=== PATIENT | female | born 1940 | race Caucasian/White ===

== ENCOUNTER 2020-05-09 14:34 | Inpatient (IN) | payer MEDICARE, OTHER ==
[~2020-05-09] VITALS: Ht 170 cm; Wt 73.3 kg
[2020-05-09] MEDS ORDERED: NS IV 1000 ML 1,000 ML ONE ×2 (14:46→15:52)
[2020-05-09] MEDS ORDERED: NS IV 1000 ML 1,000 ML IV STA (14:49)
[2020-05-09] MEDS ORDERED: HEParin 1000 UNIT/ML (10ML VIAL) FOR BOLUS IV STA (14:49)
[2020-05-09] MEDS ORDERED: ONDANSETRON 4 MG/2 ML (SDV) Z0FRAN IVP STA (14:58)
[2020-05-09] MEDS ORDERED: CLOPIDOGREL 300 MG (PLAVIX) TABLET PO STA (14:58)
[2020-05-09] MEDS ORDERED: HEParin DRIP 25000 UNIT/500ML 500 ML IV ONE (15:00)
[2020-05-09] MEDS ORDERED: ASPIRIN 81 MG CHEW (CHILDREN'S ASA) PO ONE (15:00)
--- NOTE | 2020-05-09 15:02 | ED Syncope ---
General Chief Complaint: Dizziness/Syncope Stated Complaint: FALL Nursing Triage Note: Patient reports she has not felt well for several days, states she has not been able to eat d/t nausea, denies any vomiting. Patient brought to the ED from [facility] for syncopal episode. B/P 80/40 per EMS, blood sugar 160 per EMS. Source of Information: Patient History of Present Illness Date Seen by Provider: May 09, 2020 Time Seen by Provider: 14:34 Initial Comments 80-year-old female presenting from [facility] after having a syncopal episode. She states that she has not been feeling well for the last 3 or 4 days. She was concerned that she may be had a urinary tract infection. However when she went to provide a urine specimen she had a syncopal episode. EMS was activated and brought her from the clinic to the emergency department. She is awake and alert but has hypertension with a blood pressure running in the 75-80 systolic range over 40s. Her blood sugar was 160 per EMS. She denies any history of heart problems or cardiac disease but did have heart problems for her dad. She states that she takes an aspirin 81 mg once a day. She otherwise denies any chronic medications. She denies any chest pain or shortness of breath. Allergies and Home Medications Allergies Coded Allergies: No Known Drug Allergies (Unverified , 05/09/20) Patient Home Medication List Home Medication List Reviewed: Yes Review of Systems Constitutional: diaphoresis; No fever; malaise (General malaise for the last few days), weakness (Generalized for the last few days), other (Syncopal episode in the clinic today) EENTM: no symptoms reported Respiratory: No cough, No dyspnea on exertion, No short of breath Cardiovascular: No chest pain, No palpitations; syncope (Passed out in the clinic today) Gastrointestinal: nausea; No vomiting Genitourinary: dysuria Musculoskeletal: no symptoms reported Skin: no symptoms reported Psychiatric/Neurological: No Symptoms Reported Past Vtqwkxw-Altzis-Hrzqmm Hx Past Med/Social Hx: Reviewed Nursing Past Med/Soc Hx Patient Social History Recent Infectious Disease Expo: No Past Medical History Surgeries: No Respiratory: No Cardiac: No Neurological: No Reproductive Disorders: No Genitourinary: No Physical Exam Vital Signs Vital Signs - First Documented 05/09/20 14:53 Temp 36.6 Pulse 64 Resp 18 B/P (MAP) 74/53 (60) Pulse Ox 97 O2 Delivery Room Air Capillary Refill : Less Than 3 Seconds Height, Weight, BMI Height: '" Weight: lbs. oz. kg; 22.00 BMI Method: General Appearance: Mild Distress, Thin, Other (clammy and pale) HEENT: PERRL/EOMI, Pharynx Normal Neck: Non Tender, Supple Cardiovascular: Regular Rate, Rhythm, Normal Peripheral Pulses Respiratory: Chest Non Tender, Lungs Clear, Normal Breath Sounds, No Accessory Muscle Use, No Respiratory Distress Gastrointestinal: Normal Bowel Sounds, No Pulsatile Mass, Soft Extremities: Normal Capillary Refill, No Pedal Edema Neurologic/Psychiatric: Alert, Oriented x3 Cranial Nerves: Normal Hearing, Normal Speech, PERRL Motor/Sensory: No Motor Deficit, No Sensory Deficit Skin: Cool, Damp, Pallor Focused Exam Lactate Level 05/09/20 14:45: Lactic Acid Level 3.35*H Lactic Acid Level Laboratory Tests Test 05/09/20 14:45 Lactic Acid Level 3.35 MMOL/L (0.50-2.00) *H Progress/Results/Core Measures Results/Orders Lab Results Laboratory Tests Test 05/09/20 14:45 Range/Units White Blood Count 17.3 H 4.3-11.0 10^3/uL Red Blood Count 4.13 L 4.35-5.85 10^6/uL Hemoglobin 13.0 11.5-16.0 G/DL Hematocrit 39 35-52 % Mean Corpuscular Volume 95 80-99 FL Mean Corpuscular Hemoglobin 31 25-34 PG Mean Corpuscular Hemoglobin Concent 33 32-36 G/DL Red Cell Distribution Width 13.0 10.0-14.5 % Platelet Count 264 130-400 10^3/uL Mean Platelet Volume 11.0 H 7.4-10.4 FL Immature Granulocyte % (Auto) 0 % Neutrophils (%) (Auto) 78 H 42-75 % Lymphocytes (%) (Auto) 10 L 12-44 % Monocytes (%) (Auto) 11 0-12 % Eosinophils (%) (Auto) 0 0-10 % Basophils (%) (Auto) 0 0-10 % Neutrophils # (Auto) 13.5 H 1.8-7.8 X 10^3 Lymphocytes # (Auto) 1.6 1.0-4.0 X 10^3 Monocytes # (Auto) 2.0 H 0.0-1.0 X 10^3 Eosinophils # (Auto) 0.1 0.0-0.3 10^3/uL Basophils # (Auto) 0.1 0.0-0.1 10^3/uL Immature Granulocyte # (Auto) 0.1 0.0-0.1 10^3/uL Neutrophils % (Manual) 68 % Lymphocytes % (Manual) 17 % Monocytes % (Manual) 11 % Eosinophils % (Manual) 0 % Basophils % (Manual) 0 % Metamyelocytes % 0 % Myelocytes % 2 % Band Neutrophils 2 % Prothrombin Time 13.9 12.2-14.7 SEC INR Comment 1.0 0.8-1.4 Activated Partial Thromboplast Time 28 24-35 SEC Sodium Level 135 135-145 MMOL/L Potassium Level 3.8 3.6-5.0 MMOL/L Chloride Level 98 98-107 MMOL/L Carbon Dioxide Level 20 L 21-32 MMOL/L Anion Gap 17 H 5-14 MMOL/L Blood Urea Nitrogen 20 H 7-18 MG/DL Creatinine 0.94 0.60-1.30 MG/DL Estimat Glomerular Filtration Rate 58 BUN/Creatinine Ratio 21 Glucose Level 154 H 70-105 MG/DL Lactic Acid Level 3.35 *H 0.50-2.00 MMOL/L Calcium Level 9.3 8.5-10.1 MG/DL Corrected Calcium 9.5 8.5-10.1 MG/DL Magnesium Level 1.8 1.6-2.4 MG/DL Total Bilirubin 0.8 0.1-1.0 MG/DL Aspartate Amino Transf (AST/SGOT) 44 H 5-34 U/L Alanine Aminotransferase (ALT/SGPT) 28 0-55 U/L Alkaline Phosphatase 95 40-136 U/L Troponin I 11.85 *H <0.30 NG/ML Pro-B-Type Natriuretic Peptide 6376.0 H <75.0 PG/ML Total Protein 7.3 6.4-8.2 GM/DL Albumin 3.8 3.2-4.5 GM/DL Lipase 10 8-78 U/L My Orders Orders - KACY PORTILLO MD Cbc With Automated Diff (05/09/20 14:47) Magnesium (05/09/20 14:47) Chest 1 View Ap/Pa Only (05/09/20 14:47) Ekg Tracing (05/09/20 14:47) Comprehensive Metabolic Panel (05/09/20 14:47) Protime With Inr (05/09/20 14:47) Partial Thromboplastin Time (05/09/20 14:47) O2 (05/09/20 14:47) Monitor-Rhythm Ecg Trace Only (05/09/20 14:47) Aspirin Chewable Tablet (Baby Aspirin Ch (05/09/20 15:00) Ed Iv/Invasive Line Start (05/09/20 14:47) Lipase (05/09/20 14:47) Troponin I Fs (05/09/20 14:47) Probnp Fs (05/09/20 14:47) Ua Culture If Indicated (05/09/20 14:49) Blood Culture (05/09/20 14:49) Lactic Acid Analyzer (05/09/20 14:49) Heparin Drip [id number] Unit/500ml (Heparin (05/09/20 15:00) Heparin (Bolus Per Protocol) (Heparin (B (05/09/20 14:49) Ns Iv 1000 Ml (Sodium Chloride 0.9%) (05/09/20 14:49) Ns Iv 1000 Ml (Sodium Chloride 0.9%) (05/09/20 14:46) Clopidogrel Tablet (Plavix Tablet) (05/09/20 14:58) Ondansetron Injection (Zofran Injectio (05/09/20 14:58) Manual Differential (05/09/20 14:45) Medications Given in ED Current Medications Medications Dose Ordered Sig/Nathalia Route Start Time Stop Time Status Last Admin Dose Admin Aspirin 324 mg ONCE ONCE PO 05/09/20 15:00 05/09/20 15:01 DC 05/09/20 15:10 324 MG Vital Signs/I&O 05/09/20 14:53 Temp 36.6 Pulse 64 Resp 18 B/P (MAP) 74/53 (60) Pulse Ox 97 O2 Delivery Room Air Blood Pressure Mean: 60 Progress Progress Note : Progress Note Patient noted to have ST elevation on the cardiac telemetry monitoring so with her syncopal episode EKG was ordered. This also showed ST elevation in the inferoposterior and lateral leads. Based on this aspirin and heparin were ordered. She was still hypotensive in the 70-80 systolic range but she was alert and talking. I paged and spoke with Dr. Simpson the on-call geological survey field assistant at 1452. He agreed with the aspirin and wanted a bolus of heparin but did not want the drip. He also requested 600 mg of Plavix. EMS was notified and activated for the emergent transfer. 9 I spoke with nursing retail warehouse supervisor as EMS arrived to take the patient. [address] Monroe for [facility] monitoring specialist provider so she was aware of the patient in case she was consulted or had to admit the patient. Initial ECG Impression Date: May 09, 2020 Initial ECG Impression Time: 14:41 Initial ECG Rate: 67 Initial ECG Rhythm: Normal Sinus Initial ECG Comparisson: No Previous ECG Available Comment Normal sinus rhythm with a heart rate of 67 bpm and a prolonged MO interval of 282 ms. Nonspecific intraventricular conduction delay. Inferoposterior infarct with ST elevation in leads II, III, aVF. QT interval 359 ms with a QTc interval 379 ms. No prior tracings available for comparison. Diagnostic Imaging Diagonstic Imaging: Xray Plain Films/CT/US/NM/MRI: chest Comments [facility] [place], [place] NAME: LALI HERNANDEZ [facility] REC#: [id number] PT STATUS: REG ER : 1940 PHYSICIAN: KACY PORTILLO MD ADMIT DATE: 05/09/20/ER FS Draft Date of Exam:05/09/20 CHEST 1 VIEW AP/PA ONLY INDICATION: Syncope. EXAMINATION: Portable chest at 2:54 PM. FINDINGS: The heart size and pulmonary vascularity are normal. The lungs are clear. There are no effusions or pneumothoraces. IMPRESSION: Negative chest. Dictated on workstation # [id number] Dict: 05/09/20 1509 Trans: 05/09/20 [facility]2 [id number] Interpreted by: RAVIN FRENCH MD Electronically signed by: Departure Communication (Admissions) Time/Spoke to Admitting Phy: 14:52 d/w Dr. Simpson and he requested pt come straight to the [facility]. Plavix 600 mg, Bolus of Heparin, Aspirin 324 mg and come immediately to [facility]. Notified Nursing retail warehouse supervisor and EMS to arrange transport. Impression Primary Impression: Acute ST elevation myocardial infarction (STEMI) Qualified Codes: I21.3 - ST elevation (STEMI) myocardial infarction of unspecified site Additional Impression: Syncope Qualified Codes: R55 - Syncope and collapse Disposition: 30 STILL A PATIENT Condition: Critical Admissions Decision to Admit Reason: Admit from ER (General) Decision to Admit/Date: May 09, 2020 Time/Decision to Admit Time: 14:52 KACY PORTILLO MD May 09, 2020 15:02
[2020-05-09 15:04] LABS: HEMATOCRIT 39 % (35-52); MEAN CORPUSCULAR HEMOGLOBIN 31 PG (25-34); MEAN CORPUSCULAR HGB CONC 33 G/DL (32-36); MEAN CORPUSCULAR VOLUME 95 FL (80-99); PLATELET COUNT 264 10^3/uL (130-400); WHITE BLOOD COUNT 17.3 10^3/uL (4.3-11.0)
[2020-05-09 15:05] LABS: BASOPHILS # (AUTO) 0.1 10^3/uL (0.0-0.1); BASOPHILS % (AUTO) 0 % (0-10); EOSINOPHILS # (AUTO) 0.1 10^3/uL (0.0-0.3); EOSINOPHILS % (AUTO) 0 % (0-10); LYMPHOCYTES # (AUTO) 1.6 X 10^3 (1.0-4.0); LYMPHOCYTES % (AUTO) 10 % (12-44); MONOCYTES % (AUTO) 11 % (0-12); NEUTROPHILS # (AUTO) 13.5 X 10^3 (1.8-7.8); NEUTROPHILS % (AUTO) 78 % (42-75)
--- NOTE | 2020-05-09 15:12 | Diagnostic Imaging Report ---
INDICATION: Syncope. EXAMINATION: Portable chest at 2:54 PM. FINDINGS: The heart size and pulmonary vascularity are normal. The lungs are clear. There are no effusions or pneumothoraces. IMPRESSION: Negative chest. Dictated by: Dictated on workstation # [id number]
[2020-05-09 15:13] LABS: PROTHROMBIN TIME PATIENT 13.9 SEC (12.2-14.7)
[2020-05-09 15:24] LABS: BILIRUBIN,TOTAL 0.8 MG/DL (0.1-1.0); CALCIUM 9.3 MG/DL (8.5-10.1); CREATININE SERUM 0.94 MG/DL (0.60-1.30); MAGNESIUM 1.8 MG/DL (1.6-2.4); POTASSIUM 3.8 MMOL/L (3.6-5.0)
[2020-05-09 15:25] LABS: ALBUMIN 3.8 GM/DL (3.2-4.5); TOTAL PROTEIN 7.3 GM/DL (6.4-8.2)
[2020-05-09 15:27] LABS: BAND NEUTROPHILS 2 %; BASOPHILS % (MANUAL) 0 %; EOSINOPHILS % (MANUAL) 0 %; LYMPHOCYTES % (MANUAL) 17 %; METAMYELOCYTES % 0 %; MONOCYTES % (MANUAL) 11 %; MYELOCYTES % 2 %; NEUTROPHILS % (MANUAL) 68 %
[2020-05-09] MEDS ORDERED: ATROPINE INJECTION 1 MG/10 ML SYR (ABBOTT) INJ ONE (15:46)
[2020-05-09] MEDS ORDERED: EPTIFIBATIDE BOLUS 20 ML IV ONE (15:56)
[2020-05-09] MEDS ORDERED: ATROPINE INJECTION 1 MG/10 ML SYR (ABBOTT) ONE ×2 (15:57→16:11)
[2020-05-09] MEDS ORDERED: niCARdipine 25 MG/10 ML (CARDENE) AMP IV ONE (16:06)
[2020-05-09] MEDS ORDERED: NS (IVPB) 250 ML ONE (16:07)
[2020-05-09] MEDS ORDERED: DOPamine DRIP 250 ML IV ONE (16:13)
[2020-05-09] MEDS ORDERED: MIDAZOLAM 5 MG/5 ML (VERSED) VIAL ONE (16:45)
[2020-05-09] MEDS ORDERED: fentaNYL INJ 100 MCG/2 ML AMP ONE (16:45)
--- NOTE | 2020-05-09 16:52 | Cardiology History & Physical ---
HPI-Cardiology Cardiology Consultation Date of Consultation 05/09/20 Date of Admission Time Seen by Provider: 15:45 Indication: chest pain HPI 80 years old lady with no significant past medical history, reported history of syncope about 3-4 days ago and came to the emergency room because she was not feeling very well. Did not have a arpan chest pain. Was noted to have ST elevation in the inferior leads with hyperglycemia, elevated lactic acid. Hypotensive with a blood pressure in the 70s. Patient was transferred for emergency cardiac catheterization and stent PMH-Cardiology Surgeries No Respiratory No Cardiovascular No Neurological No Reproductive System Hx Reproductive Disorders: No Genitourinary No Other PMHx No significant past medical history Social History Patient Social History Marrital Status: Employed/Student: retired Smoking: Current every day smoker Family Hx Other Noncontributory ROS-Cardiology Review of Systems General: No Chills, No Night Sweats; Fatigue, Malaise; No Appetite HEENT: No Head Aches, No Visual Changes, No Eye Pain, No Ear Pain, No Dysphasia, No Sinus Congestion, No Post Nasal Drip, No Sore Throat Pulmonary: Dyspnea; No Cough, No Pleuritic Chest Pain Cardiovascular: Chest Pain; No: Palpitations, Orthopnea, Paroxysmal Noc. Dyspnea, Edema, Lt Headedness Gastrointestinal: No: Nausea, Vomiting, Abdominal Pain, Diarrhea, Constipation, Melena, Hematochezia Genitourinary: No Dysuria, No Frequency, No Incontinence, No Hematuria, No Retention Musculoskeletal: No: neck pain, shoulder pain, arm pain, back pain, hand pain, leg pain, foot pain Neurological: No: Weakness, Numbness, Incoordination, Change in speech, Conf usion, Seizures Home Medications & Allergies Allergies: Coded Allergies: No Known Drug Allergies (Unverified , 05/09/20) Home Medication List Reviewed: Yes Exam-Cardiology Vital Signs Vital Signs Date Time Temp Pulse Resp B/P (MAP) Pulse Ox O2 Delivery O2 Flow Rate FiO2 05/09/20 14:53 36.6 64 18 74/53 (60) 97 Room Air Exam General Appearance: Alert, Oriented X3, Cooperative, No Acute Distress HEENT: Atraumatic, PERRLA Respiratory: Clear to Auscultation, Normal Air Movement Cardiovascular: Regular Rate, Normal S1, Normal S2, No Murmurs Abdominal: Normal Bowel Sounds, Soft, No Tenderness, No Hepatosplenomegaly, No Masses Extremities: No Clubbing, No Cyanosis, No Edema, Normal Pulses, No Tenderness/Swelling Skin: No Rashes, No Breakdown, No Significant Lesion Neuro: Normal Gait, Normal Speech, Strength at 5/5 X4 Ext, Normal Tone, Sensation Intact Psych/Mental Status: Mental Status NL, Mood NL Results Labs Labs Laboratory Tests 05/09/20 14:45: White Blood Count 17.3H, Red Blood Count 4.13L, Hemoglobin 13.0, Hematocrit 39, Mean Corpuscular Volume 95, Mean Corpuscular Hemoglobin 31, Mean Corpuscular Hemoglobin Concent 33, Red Cell Distribution Width 13.0, Platelet Count 264, Mean Platelet Volume 11.0H, Immature Granulocyte % (Auto) 0, Neutrophils (%) (Auto) 78H, Lymphocytes (%) (Auto) 10L, Monocytes (%) (Auto) 11, Eosinophils (%) (Auto) 0, Basophils (%) (Auto) 0, Neutrophils # (Auto) 13.5H, Lymphocytes # (Auto) 1.6, Monocytes # (Auto) 2.0H, Eosinophils # (Auto) 0.1, Basophils # (Auto) 0.1, Immature Granulocyte # (Auto) 0.1, Neutrophils % (Manual) 68, Lymphocytes % (Manual) 17, Monocytes % (Manual) 11, Eosinophils % (Manual) 0, Basophils % (Manual) 0, Metamyelocytes % 0, Myelocytes % 2, Band Neutrophils 2, Prothrombin Time 13.9, INR Comment 1.0, Activated Partial Thromboplast Time 28, Sodium Level 135, Potassium Level 3.8, Chloride Level 98, Carbon Dioxide Level 20L, Anion Gap 17H, Blood Urea Nitrogen 20H, Creatinine 0.94, Estimat Glomerular Filtration Rate 58, BUN/Creatinine Ratio 21, Glucose Level 154H, Lactic Acid Level 3.35*H, Calcium Level 9.3, Corrected Calcium 9.5, Magnesium Level 1.8, Total Bilirubin 0.8, Aspartate Amino Transf (AST/SGOT) 44H, Alanine Aminotransfe rase (ALT/SGPT) 28, Alkaline Phosphatase 95, Troponin I 11.85*H, Pro-B-Type Natriuretic Peptide 6376.0H, Total Protein 7.3, Albumin 3.8, Lipase 10 A/P-Cardiology Admission Diagnosis Acute ST elevation myocardial infarction Septic shock Congestive heart failure, acute left ventricular systolic dysfunction Hypotension Lactic acidosis Admission Status: Inpatient Order (span 2 midnights) Reason for Inpatient Admission: Acute myocardial infarction Assessment/Plan Acute ST elevation occurred infarction in the inferior wall, status post emergency cardiac catheterization and stenting of the right coronary artery with multiple stents, severe coronary artery disease. Started on aspirin and Plavix. Continue to monitor Cardiogenic shock, hypotensive shock, had transient bradycardia started on dopamine drip, received atropine. Better at this time. Continue to monitor closely Congestive heart failure, acute left ventricular systolic dysfunction, severe hypokinesia diffusely, akinesia of the inferior wall, started on Coreg and Entresto, adding Lasix, place a Ross catheter Hypotensive shock, better at this time, monitor blood pressure closely Lactic acidosis, probably secondary to prolonged hypotension prior to arrival to the hospital Leukocytosis, probably reactive. Syncope, reported syncope 2-3 days ago, probably related to arrhythmia and hypotension. SLIM FOURNIER MD May 09, 2020 4:52 pm
--- NOTE | 2020-05-09 16:52 | Cardiac Procedure Note-CS/ASA ---
Pre-Procedure Note Pre-Op Procedure Note H&P Reviewed The H&P was reviewed, patient examined and no changes noted. Date H&P Reviewed: May 09, 2020 Time H&P Reviewed: 16:52 Conscious Sedation Pre-Proced Time 16:52 ASA Score 3 For ASA 3 and 4: Consider anesthesia and medical clearance. Also, for patients with a history of failed moderate sedation consider anesthesia. Airway Lungs Heart ASA score ASA 1: a normal healthy patient ASA 2: a patient with a mild systemic disease (mid diabetes, controlled hypertension, obesity x ASA 3: a patient with a severe systemic disease that limits activity (angina, COPD, prior Myocardial infarction) ASA 4: a patient with an incapacitating disease that is a constant threat to life (CHF, renal failure) ASA 5: a moribund patient not expected to survive 24 hrs. (ruptured aneurysm) ASA 6: a declared brain- patient whose organs are being harvested. For emergent operations, add the letter E after the classification Mallampati Classification Grade 3 Sedation Plan Analgesia, Amnesia, Plan communicated to team members, Discussed options with patient/fam, Discussed risks with patient/fam The patient is an appropriate candidate to undergo the planned procedure, sedation, and anesthesia. The patient immediately re-assessed prior to indication. SLIM FOURNIER MD May 09, 2020 4:52 pm
[2020-05-09] MEDS ORDERED: HEParin (CATH LAB) 2,000 ML IV ONE (16:58)
[2020-05-09] MEDS ORDERED: HEParin 1000 UNIT/ML (10ML VIAL) FOR BOLUS ONE (16:58)
[2020-05-09] MEDS ORDERED: NITRO DRIP 25000 MCG/D5W 250 ML IV ONE (16:58)
[2020-05-09] MEDS ORDERED: PATIENT MAY USE OWN MEDS, ALL PO SCH (17:00)
[2020-05-09] MEDS ORDERED: ENOXAPARIN 40 MG/0.4 ML (LOVENOX) SYR SQ SCH (17:00)
--- NOTE | 2020-05-09 17:06 | Cardiac Cath Report ---
Cardiac Cath Report Physician (s)/Tool Crib Clerk (s) Physician SLIM FOURNIER MD Pre-Procedure Diagnosis Pre-Procedure Diagnosis: acute ST elevation myocardial infarction Post-Procedure Note Procedure Start Date: May 09, 2020 Name of Procedure: Left heart catheterization Left ventriculogram Stent to the right coronary artery Findings/Procedure Note PROCEDURE NOTE: 80-year-old lady with no known past medical history admitted with acute ST elevation of cardiac infarction of the inferior wall, transferred from [facility] for emergency cardiac catheterization. On arrival patient was hypotensive. Heart rate was stable. She was lethargic. After explaining the procedure to the patient, all pros and cons were explained, all questions were answered. The patient signed the consent and then she was placed on the cardiac catheterization laboratory. Groin was prepped SL fashion local anesthesia was used. Sheath placed in the right femoral artery. Bandar left was advanced and left coronary system and angiogram was done then I used Bandar right guide and advanced to the right coronary artery which was occluded. Patient received 3000 units of heparin in [place] emergency room I gave additional 3000 units, BMW wire crossed with difficulty to the distal right coronary artery and I predilated with 2.5 x 20 balloon reestablished flow, door to balloon time was 20 minutes. After multiple inflation I proceeded with deployment of Jackie 2.5 x 33 stent deployed under highv with optimal results. I was trying to deliver stent distally without success I delivered a stent to the proximal portion use Jackie 2.5 x 18 mm and expanded to 2.75 mm did multiple inflation with 2.75 stent. Another attempt to cross the stent to the distal was unsuccessful. During the procedure patient became bradycardic and hypotensive, atropine was given then started on dopamine drip. Patient responded well. At the end of the procedure the sheath was removed. Closure device was deployed FINDINGS: Hemodynamics LV 127/30, end-diastolic pressure of 30 Aorta 125/67 mean of 78 ANATOMY: Left Main is free of obstructive disease Left Anterior Descending has moderate lesion in the midportion, distally there is an area of severe stenosis, the artery is fairly small Left Circumflex has moderate severe lesion proximally Right Coronory Artery is totally occluded, heavily calcified artery, complex intervention with multiple stent deployment using proximally Jackie 2.5 x 18 mm followed by 2.5 x 33 mm they both expanded to 2.8 mm with excellent results. Distally there is still residual stenosis that was not treated due to the reestablishment of flow and an inability to advance stent, patient was becoming very restless LV Gram was done showing dilated left ventricle, severe diffuse left ventricular hypokinesia, akinesia of the inferior wall, ejection fraction 20 percent CONCLUSION: 1. Acute ST elevation myocardial infarctions successful emergency angioplasty and stenting with door to balloon time 20 minutes 2. Total occlusion of the right coronary artery complex intervention with deployment of 2 stents Jackie proximally 2.5 x 18 mm followed by 2.5 x 33 mm expanded to 2.8 mm with excellent results, distal to the stent the artery is fairly small but still have a lesion that required evaluation at a later point 3. Moderate severe stenosis at the proximal circumflex artery, moderate lesion in the mid LAD and moderate severe lesion at the distal LAD 4. Dilated left ventricle with severe diffuse left ventricular hypokinesia, akinesia of the inferior wall, EF 20 percent DISCUSSION AND RECOMMENDATION: Maximizing medical therapy, patient might require evaluation for CABG or high risk staged intervention, will need to have an ICD in the Life[employer]est in addition to maximizing medical therapy. Anesthesia Type: Conscious Sedation Estimated blood loss (mL): 35 ml Contrast Amount: 107 ml Total Radiation Dose: 1217 mGy Post-Procedure Diagnosis Post-operative diagnosis: Acute ST elevation myocardial infarctions Congestive heart failure Acute hypotensive shock Hyperlipidemia SLIM FOURNIER MD May 09, 2020 17:06
[2020-05-09] MEDS: NS IV 1000 ML 1,000 ML IV SCH (17:12)
[2020-05-09] MEDS ORDERED: morphine INJ 4 MG/ML 1 ML (VIAL/SYRINGE) ONE (17:32)
[2020-05-09] MEDS: morphine INJ 4 MG/ML 1 ML (VIAL/SYRINGE) IVP PRN (17:38)
[2020-05-09 18:24] LABS: ALBUMIN 3.3 GM/DL (3.2-4.5); CHLORIDE 108 MMOL/L (98-107); POTASSIUM 3.9 MMOL/L (3.6-5.0); SODIUM 135 MMOL/L (135-145)
[2020-05-09 18:25] LABS: CALCIUM 7.8 MG/DL (8.5-10.1)
[2020-05-09 18:27] LABS: GLUCOSE 123 MG/DL (70-105)
[2020-05-09 18:28] LABS: CARBON DIOXIDE 15 MMOL/L (21-32)
[2020-05-09 18:29] LABS: BILIRUBIN,TOTAL 1.4 MG/DL (0.1-1.0)
[2020-05-09 18:30] LABS: ALKALINE PHOSPHATASE 101 U/L (40-136); CREATININE SERUM 0.84 MG/DL (0.60-1.30); GFR ESTIMATED > 60; PHOSPHORUS 4.1 MG/DL (2.3-4.7)
[2020-05-09 18:31] LABS: BUN/CREATININE RATIO 21
[2020-05-09 18:33] LABS: BILIRUBIN,URINE NEGATIVE (NEGATIVE); CLARITY,URINE CLEAR; COLOR,URINE YELLOW; GLUCOSE, URINE (UA) TRACE (NEGATIVE); KETONES,URINE NEGATIVE (NEGATIVE); LEUKOCYTE ESTERASE ,URINE NEGATIVE (NEGATIVE); NITRITE,URINE NEGATIVE (NEGATIVE); PROTEIN,URINE 3+ (NEGATIVE)
[2020-05-09 18:33] LABS: ALANINE AMINOTRANSFERASE 57 U/L (0-55); MAGNESIUM 1.7 MG/DL (1.6-2.4)
[2020-05-09 18:36] LABS: BASOPHILS % (AUTO) 0 % (0-10); EOSINOPHILS % (AUTO) 0 % (0-10); HEMATOCRIT 36 % (35-52); HEMOGLOBIN 11.3 g/dL (11.5-16.0); LYMPHOCYTES # (AUTO) 0.5 10^3/uL (1.0-4.0); LYMPHOCYTES % (AUTO) 2 % (12-44); MEAN CORPUSCULAR HEMOGLOBIN 32 pg (25-34); MEAN CORPUSCULAR HGB CONC 32 g/dL (32-36); MEAN CORPUSCULAR VOLUME 102 fL (80-99); MEAN PLATELET VOLUME 11.5 fL (9.0-12.2); MONOCYTES # (AUTO) 1.3 10^3/uL (0.0-1.0); MONOCYTES % (AUTO) 7 % (0-12); NEUTROPHILS # (AUTO) 17.4 10^3/uL (1.8-7.8); NEUTROPHILS % (AUTO) 89 % (42-75); PLATELET COUNT 209 10^3/uL (130-400); WHITE BLOOD COUNT 19.5 10^3/uL (4.3-11.0)
[2020-05-09 18:53] LABS: AMORPHOUS SEDIMENT,UR LARGE AMOR PHOSPHATE /LPF; BACTERIA,URINE TRACE /HPF
[2020-05-09] MEDS ORDERED: PIPERACILLIN/TAZO 4.5 GM/NS 100 ML IV NR ×2 (19:00)
[2020-05-09 19:57] LABS: ABG BASE EXCESS -7.9 MMOL/L (-2.5-2.5); ABG OXYGEN SATURATION 99 % (94-100); ABG PCO2 34 MMHG (35-45); ABG PO2 118 MMHG (79-93); ABG TCO2 18.1 MMOL/L (21.0-31.0)
[2020-05-09 20:00] LABS: ABG PH 7.32 (7.37-7.43); ALLENS TEST YES-POS; INSPIRED O2 6 L; PATIENT TEMP 36.8; VENTILATOR NO
[2020-05-09] MEDS: SACUBITRIL/VALSARTAN 24/26 MG (ENTRESTO) TABLET PO SCH (20:27)
[2020-05-09] MEDS: CARVEDILOL 3.125 MG (COREG) TABLET PO SCH (20:27)
[2020-05-09] MEDS: ENOXAPARIN 40 MG/0.4 ML (LOVENOX) SYR SQ SCH (20:27)
[2020-05-09] MEDS ORDERED: SODIUM BICARBONATE 8.4% VIAL 100 MEQ in 1/2 NS IV SOLUTION 1,000 ML IV SCH (20:30)
[2020-05-09] MEDS ORDERED: NS IV 500 ML 500 ML ONE (22:45)
[2020-05-09] MEDS ORDERED: NS IV 500 ML 500 ML IV STA (22:54)
[2020-05-09] MEDS: NS IV 500 ML 500 ML IV SCH (22:58)
[2020-05-10] MEDS ORDERED: DOPamine DRIP 250 ML IV ONE (00:06)
[2020-05-10] MEDS: DOPamine DRIP 250 ML IV SCH ×2 (00:20→13:22)
[2020-05-10] MEDS: NS IV 1000 ML 1,000 ML IV SCH (00:33)
[2020-05-10] MEDS ORDERED: ONDANSETRON 4 MG/2 ML (SDV) Z0FRAN ONE (00:44)
[2020-05-10] MEDS ORDERED: ONDANSETRON 4 MG/5 ML ORAL SOLN (ZOFRAN) 5 ML PO PRN (01:00)
--- NOTE | 2020-05-10 01:42 | CONSULTATION REPORT ---
DATE OF SERVICE: 05/10/2020 ADMITTING PHYSICIAN: Dr. Simpson. ATTENDING PRIMARY CARE PHYSICIAN: Dr. Campos. HISTORY OF PRESENT ILLNESS: The patient is a 80-year-old female, who had a syncopal episode 3 to 4 days ago and then came to the Emergency Department and stated that she was very fatigued and not feeling well. She did not report any chest pain or any shortness of breath. She was noted to have ST elevation in the inferior leads as well as hyperglycemia and she was also found to be hypotensive with blood pressure in the 70s. She was transferred to [facility] where she was found to have ST elevation myocardial infarction, underwent cardiac catheterization as well as two stents placed today. In the ICU, she became hypotensive with a systolic blood pressure in the 70s requiring vasopressors. She is awake and alert and does answer all questions appropriately. Her only complaint at this time is fatigue. PAST MEDICAL HISTORY: Hypertension, hypercholesterolemia. PAST SURGICAL HISTORY: None. ALLERGIES: No known drug allergies. MEDICATIONS: Atorvastatin 80 mg daily, sacubitril/valsartan 24/26 mg daily, carvedilol 3.125 mg daily. SOCIAL HISTORY: Positive smoke 40 pack years. Negative alcohol. FAMILY HISTORY: Father, coronary artery disease. VITAL SIGNS: Temperature 36.6, blood pressure 77/42, pulse 62, respirations 22, pulse ox 98% on 3 liters nasal cannula. REVIEW OF SYSTEMS: Well-nourished female currently in no acute distress. She is not experiencing any shortness of breath or difficulty breathing. No chest pain, palpitations, diaphoresis. No nausea, vomiting, no diarrhea or constipation. No fever, chills, no recent inadvertent weight loss. All other review of systems negative. PHYSICAL EXAMINATION: CHEST: A few scattered wheezes bilaterally. HEART: Regular, no murmurs. EXTREMITIES: No lower extremity edema, negative Homans sign. HEENT: No scleral icterus. NECK: No cervical lymphadenopathy. ABDOMEN: Soft, nontender, nondistended. SKIN: Warm, dry. ASSESSMENT AND PLAN: A 80-year-old female with ST segment elevation myocardial infarction, requiring cardiac catheterization and stent placement x2. She is hypotensive and will require vasopressors and will require a central venous catheter for vasopressors as well as IV fluids and other IV medication therapy. Job ID: [id number] DocumentID: [id number] Dictated Date: 05/10/2020 01:20:02 Program Management Analyst Date: 05/10/2020 01:41:52 Dictated By: EDD DOWNS MD
--- NOTE | 2020-05-10 02:01 | OPERATIVE REPORT ---
DATE OF SERVICE: 05/10/2020 ADMITTING PHYSICIAN: Dr. Simpson. ATTENDING PRIMARY CARE PHYSICIAN: Dr. Campos. PREOPERATIVE DIAGNOSIS: ST segment elevation myocardial infarction with hypotension. POSTOPERATIVE DIAGNOSIS: ST segment elevation myocardial infarction with hypotension. PROCEDURE: Placement of left subclavian central venous catheter. SURGEON: Edd Downs MD. ANESTHESIA: Local. ESTIMATED BLOOD LOSS: Minimal. DISPOSITION: The patient tolerated the procedure well. INDICATIONS: The patient is a 80-year-old female who has had a several day history of fatigue and just not feeling well. She presented to [facility] where she was found to have ST segment elevation in posterior lead and was transferred to [facility]. She was seen by cardiology and underwent cardiac catheterization and found to have a significant arteriosclerotic disease and underwent angioplasty and stent placement x2. In the ICU, she did develop hypotension with a systolic blood pressure in the 70s. She will require a central venous catheter for vasopressors as well as other IV medication therapy. DESCRIPTION OF PROCEDURE: The left chest and neck were prepped and draped in standard surgical fashion. A 1% lidocaine was used to anesthetize the left subclavian region. The left subclavian vein was then cannulated with drawing of venous blood and the guidewire was then inserted without any resistance. The cannulating needle removed, and a skin incision made using 11 blade. A tract was then created using a venous dilator and a triple lumen central venous catheter was placed over the guidewire using the Seldinger technique. All three ports beau venous blood and saline pushed in without any resistance. Catheter was then sutured to the skin using 3-0 silk interrupted sutures. Catheter was then cleaned and covered with Op-Site. The patient tolerated the procedure well. We will get a post-procedure chest x-ray. Job ID: [id number] DocumentID: [id number] Dictated Date: 05/10/2020 01:23:08 Slider Assembler Date: 05/10/2020 02:01:12 Dictated By: EDD DOWNS MD
[2020-05-10] MEDS: PIPERACILLIN/TAZOBACTAM (BULK) 4.5 GM in NS (IVPB) 100 ML IV SCH ×3 (02:30→16:38)
[2020-05-10] MEDS ORDERED: METOCLOPRAMIDE INJ 10 MG/2 ML (REGLAN) IVP ONE (02:30)
[2020-05-10 03:51] LABS: HEMOGLOBIN 10.1 g/dL (11.5-16.0); MEAN PLATELET VOLUME 11.3 fL (9.0-12.2); WHITE BLOOD COUNT 11.1 10^3/uL (4.3-11.0)
[2020-05-10 04:01] LABS: ABG BASE EXCESS -6.6 MMOL/L (-2.5-2.5); ABG OXYGEN SATURATION 95 % (94-100); ABG PCO2 34 MMHG (35-45); ABG PH 7.35 (7.37-7.43); ABG PO2 76 MMHG (79-93); ABG TCO2 19.2 MMOL/L (21.0-31.0)
[2020-05-10 04:02] LABS: ALLENS TEST YES-POS; INSPIRED O2 5 L; PATIENT TEMP 36.2; VENTILATOR NO
[2020-05-10 04:03] LABS: CALCIUM 7.8 MG/DL (8.5-10.1)
[2020-05-10 04:07] LABS: CREATININE SERUM 0.96 MG/DL (0.60-1.30)
[2020-05-10 05:09] LABS: PHOSPHORUS 4.8 MG/DL (2.3-4.7)
[2020-05-10 05:11] LABS: MAGNESIUM 1.7 MG/DL (1.6-2.4)
--- NOTE | 2020-05-10 05:43 | Pulmonary Consultation ---
History of Present Illness History of Present Illness Date Seen by Provider: May 10, 2020 Time Seen by Provider: 05:38 Date of Admission Reason for Visit: chest pain Allergies and Home Medications Allergies Coded Allergies: No Known Drug Allergies (Unverified , 05/09/20) Past [id number] Hx Past Med/Social Hx: Reviewed Nursing Past Med/Soc Hx Patient Social History Alcohol Use: Denies Use Smoking Status: Never a Smoker 2nd Hand Smoke Exposure: No Recent Infectious Disease Expo: No Recent Hopitalizations: No Seasonal Allergies Seasonal Allergies: No Past Medical History Surgeries: No Respiratory: No Cardiac: No Hypertension Neurological: No Reproductive Disorders: No Genitourinary: No Gastrointestinal: No Musculoskeletal: No Endocrine: No HEENT: No Cancer: No Psychosocial: No Integumentary: No Review of Systems Time Seen by Provider: 05:42 Sepsis Event Evaluation Height, Weight, BMI Height: '" Weight: lbs. oz. kg; 22.00 BMI Method: Exam Exam Vital Signs Date Time Temp Pulse Resp B/P (MAP) Pulse Ox O2 Delivery O2 Flow Rate FiO2 05/10/20 04:50 93 OxyMask 5.00 05/10/20 03:00 85 16 101/56 (71) 91 Nasal Cannula 3.00 05/10/20 02:00 95 17 138/67 (90) 92 Nasal Cannula 3.00 05/10/20 01:00 60 05/10/20 01:00 63 22 100/51 (67) 92 Nasal Cannula 3.00 05/10/20 00:30 36.2 Nasal Cannula 3.00 05/10/20 00:20 62 77/42 05/10/20 00:00 67 18 81/46 (58) 98 Nasal Cannula 3.00 05/10/20 00:00 90 Nasal Cannula 3.00 05/09/20 23:00 64 30 94/60 (71) 98 Nasal Cannula 3.00 05/09/20 22:00 65 22 86/48 (61) Nasal Cannula 3.00 05/09/20 21:00 68 24 112/72 (85) 100 Nasal Cannula 3.00 05/09/20 20:20 90 Nasal Cannula 3.00 05/09/20 20:20 Nasal Cannula 3.00 05/09/20 20:00 70 21 119/68 (85) 97 Nasal Cannula 5.00 05/09/20 19:25 35.8 Nasal Cannula 5.00 05/09/20 19:00 72 17 103/68 (80) 100 Nasal Cannula 5.00 05/09/20 19:00 72 05/09/20 18:56 90 Nasal Cannula 7.00 05/09/20 18:20 89 05/09/20 18:00 76 22 95/58 (70) 100 Nasal Cannula 5.00 05/09/20 17:45 80 22 107/61 (76) 99 Nasal Cannula 5.00 05/09/20 17:30 86 22 93/72 (79) 58 Nasal Cannula 5.00 05/09/20 17:15 85 13 133/82 (99) 74 Nasal Cannula 5.00 05/09/20 17:00 69 8 88/59 (69) Nasal Cannula 5.00 05/09/20 15:12 36.6 66 22 74/53 97 Room Air 05/09/20 14:53 36.6 64 18 74/53 (60) 97 Room Air I & O 05/10/20 07:00 Intake Total 1420 ml Output Total 450 ml Balance 970 ml Height & Weight Height: '" Weight: lbs. oz. kg; 22.00 BMI Method: General Appearance: Mild Distress, Thin, Other (clammy and pale) HEENT: PERRL/EOMI, Pharynx Normal Neck: Non Tender, Supple Respiratory: Chest Non Tender, Lungs Clear, Normal Breath Sounds, No Accessory Muscle Use, No Respiratory Distress Cardiovascular: Regular Rate, Rhythm, Normal Peripheral Pulses Capillary Refill: Less Than 3 Seconds Extremity: Normal Capillary Refill, No Pedal Edema Neurologic/Psychiatric: Alert, Oriented x3 Skin: Cool, Damp, Pallor Results Lab Laboratory Tests 05/09/20 14:45 05/09/20 18:00 05/10/20 03:43 Assessment/Plan Assessment/Plan S/p Acute STEMI and cardiac cath with 2 stents placed total occlusion of RCA and moderate to severe stenosis of proximal circumflex artery and LAD stenosis Cardiogenic shock EF is 20% and bradycardia -Pt is on Dopamine gtt now r/o sepsis -Continue Zosyn -Cultures pending Metabolic lactic acidosis -improving -Change Bicarb gtt back to LR DEQUAN TAO DO May 10, 2020 05:43
--- NOTE | 2020-05-10 05:57 | Diagnostic Imaging Report ---
INDICATION: Chest pain Portable chest 1:09 AM Left subclavian central line tip projects over the SVC. Heart size and pulmonary vascularity are both mildly increased. Lungs are clear. There are no effusions or pneumothoraces. IMPRESSION: Mild pulmonary venous congestion Dictated by: Dictated on workstation # [id number]
[2020-05-10] MEDS: LACTATED RINGERS 1,000 ML IV SCH ×2 (05:59→16:38)
[2020-05-10] MEDS: SACUBITRIL/VALSARTAN 24/26 MG (ENTRESTO) TABLET PO SCH ×2 (07:39→21:55)
[2020-05-10] MEDS: CARVEDILOL 3.125 MG (COREG) TABLET PO SCH ×2 (07:39→21:55)
[2020-05-10] MEDS: PANTOPRAZOLE 40 MG (PROTONIX) TAB PO SCH (08:34)
[2020-05-10] MEDS: ASPIRIN E.C. 81 MG (ECOTRIN) TAB PO SCH (08:34)
[2020-05-10] MEDS: CLOPIDOGREL 75 MG (PLAVIX) TABLET PO SCH (08:34)
--- NOTE | 2020-05-10 08:56 | Cardiology Progress Note ---
Subjective Date Seen by Provider: May 10, 2020 Time Seen by Provider: 08:55 Subjective/Events-last exam patient is laying down in bed, feeling better, groin is healing slowly, some bruising on the groin Review of Systems General: No Chills, No Night Sweats; Fatigue, Malaise; No Appetite, No Other HEENT: No Head Aches, No Visual Changes, No Eye Pain, No Ear Pain, No D ysphasia, No Sinus Congestion, No Post Nasal Drip, No Sore Throat, No Other Pulmonary: Dyspnea; No Cough, No Pleuritic Chest Pain, No Other Cardiovascular: No: Chest Pain, Palpitations, Orthopnea, Paroxysmal Noc. Dyspnea, Edema, Lt Headedness, Other Focused Exam Lactate Level 05/09/20 14:45: Lactic Acid Level 3.35*H 05/09/20 18:00: Lactic Acid Level 2.68*H 05/09/20 20:10: Lactic Acid Level 1.80 Objective-Cardiology Exam Last Set of Vital Signs Vital Signs 05/10/20 05/10/20 05/10/20 05/10/20 05/10/20 03:00 05:00 06:00 07:45 08:36 Temp 36.6 Pulse 86 Resp 16 B/P (MAP) 115/80 (92) Pulse Ox 94 O2 Delivery High Flow N/C O2 Flow Rate 8.00 Capillary Refill : Less Than 3 Seconds I&O Intake and Output 05/10/20 00:00 Intake Total 920 ml Output Total 200 ml Balance 720 ml Intake Oral 400 ml IV Total 520 ml Output Urine Total 200 ml General: Alert, Oriented X3, Cooperative, No Acute Distress HEENT: Atraumatic, PERRLA Lungs: Clear to Auscultation, Normal Air Movement Heart: Regular Rate, Normal S1, Normal S2, Gallops, Other (systolic murmur) Abdomen: Normal Bowel Sounds, Soft, No Tenderness, No Hepatosplenomegaly, No Masses Extremities: No Clubbing, No Cyanosis, No Edema, Normal Pulses, No Tenderness/S welling Skin: No Rashes, No Breakdown, No Significant Lesion Neuro: Normal Gait, Normal Speech, Strength at 5/5 X4 Ext, Normal Tone, Sensation Intact Psych/Mental Status: Mental Status NL, Mood NL Results Lab Laboratory Tests 05/09/20 14:45 05/09/20 18:00 05/10/20 03:43 A/P-Cardiology Admission Diagnosis Acute ST elevation myocardial infarction Septic shock Congestive heart failure, acute left ventricular systolic dysfunction Hypotension Lactic acidosis Assessment/Plan Acute ST elevation occurred infarction in the inferior wall, status post emergency cardiac catheterization and stenting of the right coronary artery with multiple stents, despite coronary disease, small arteries, started on aspirin and Plavix. Continue to monitor Cardiogenic shock, hypotensive shock, had transient bradycardia started on dopamine drip, received atropine. Better at this time. Continue to monitor closely Congestive heart failure, acute left ventricular systolic dysfunction, severe hypokinesia diffusely, akinesia of the inferior wall, started on Coreg and Entresto, currently on hold due to hypotension, maintained on dopamine drip. We will continue titrating Hypotensive shock, requiring pressors. We'll continue titrating and monitor closely I will arrange for LifeVest evaluation Lactic acidosis, probably secondary to prolonged hypotension prior to arrival to the hospital Leukocytosis, probably reactive. Syncope, reported syncope 2-3 days ago, probably related to arrhythmia and hypotension. SLIM FOURNIER MD May 10, 2020 08:56
[2020-05-10] MEDS ORDERED: ATROPINE INJ 0.4 MG/ML SDV IV ONE (09:45)
[2020-05-10] MEDS ORDERED: ATROPINE INJ 0.4 MG/ML SDV ONE (09:52)
[2020-05-10] MEDS ORDERED: ATROPINE INJECTION 1 MG/10 ML SYR (ABBOTT) ONE (09:53)
[2020-05-10] MEDS ORDERED: NAPR220C11 PO (10:19)
[2020-05-10] MEDS ORDERED: ASPI-1238 PO (10:19)
[2020-05-10] MEDS: NS IV 500 ML 500 ML IV SCH (16:05)
[2020-05-10] MEDS: ENOXAPARIN 40 MG/0.4 ML (LOVENOX) SYR SQ SCH (21:12)
[2020-05-11] MEDS: DOPamine DRIP 250 ML IV SCH ×3 (01:35→22:28)
[2020-05-11] MEDS: LACTATED RINGERS 1,000 ML IV SCH ×2 (01:36→11:56)
[2020-05-11] MEDS: PIPERACILLIN/TAZOBACTAM (BULK) 4.5 GM in NS (IVPB) 100 ML IV SCH ×3 (01:37→18:21)
[2020-05-11] MEDS: PHENYLEPHRINE INJECTION 10 MG in NS (IVPB) 250 ML IV SCH ×4 (01:39→08:14)
[2020-05-11 01:59] LABS: BASOPHILS % (AUTO) 1 % (0-10); LYMPHOCYTES % (AUTO) 6 % (12-44)
[2020-05-11 02:01] LABS: EOSINOPHILS # (AUTO) 0.1 10^3/uL (0.0-0.3); EOSINOPHILS % (AUTO) 1 % (0-10); HEMATOCRIT 50 % (35-52); HEMOGLOBIN 16.3 g/dL (11.5-16.0); LYMPHOCYTES # (AUTO) 0.3 10^3/uL (1.0-4.0); MEAN CORPUSCULAR HEMOGLOBIN 31 pg (25-34); MEAN CORPUSCULAR HGB CONC 33 g/dL (32-36); MEAN CORPUSCULAR VOLUME 96 fL (80-99); MEAN PLATELET VOLUME 10.5 fL (9.0-12.2); MONOCYTES # (AUTO) 0.5 10^3/uL (0.0-1.0); MONOCYTES % (AUTO) 12 % (0-12); NEUTROPHILS # (AUTO) 3.4 10^3/uL (1.8-7.8); NEUTROPHILS % (AUTO) 80 % (42-75); PLATELET COUNT 120 10^3/uL (130-400); WHITE BLOOD COUNT 4.2 10^3/uL (4.3-11.0)
[2020-05-11 02:21] LABS: ALANINE AMINOTRANSFERASE 52 U/L (0-55); ALBUMIN 2.8 GM/DL (3.2-4.5); ALKALINE PHOSPHATASE 77 U/L (40-136); BILIRUBIN,TOTAL 0.5 MG/DL (0.1-1.0); BUN/CREATININE RATIO 19; CALCIUM 8.1 MG/DL (8.5-10.1); CARBON DIOXIDE 20 MMOL/L (21-32); CHLORIDE 109 MMOL/L (98-107); CREATININE SERUM 0.74 MG/DL (0.60-1.30); GFR ESTIMATED > 60; GLUCOSE 124 MG/DL (70-105); MAGNESIUM 1.9 MG/DL (1.6-2.4); PHOSPHORUS 2.7 MG/DL (2.3-4.7); POTASSIUM 3.4 MMOL/L (3.6-5.0); SODIUM 140 MMOL/L (135-145); TOTAL PROTEIN 5.5 GM/DL (6.4-8.2)
[2020-05-11] MEDS: morphine INJ 4 MG/ML 1 ML (VIAL/SYRINGE) IVP PRN ×4 (02:28→14:40)
[2020-05-11] MEDS ORDERED: AMIODARONE INJECTION 150 MG in D5W 100 ML IVPB 100 ML IV ONE (03:15)
[2020-05-11] MEDS ORDERED: ONDANSETRON 4 MG/2 ML (SDV) Z0FRAN ONE (04:08)
[2020-05-11] MEDS: AMIODARONE INJECTION 450 MG in D5W IV SOLUTION (EXCEL) 250 ML IV SCH ×2 (04:23→12:31)
--- NOTE | 2020-05-11 05:38 | Pulmonary Progress Note ---
Subjective Time Seen by a Provider: 05:34 Sepsis Event Evaluation Height, Weight, BMI Height: '" Weight: lbs. oz. kg; 22.00 BMI Method: Focused Exam Lactate Level 05/09/20 14:45: Lactic Acid Level 3.35*H 05/09/20 18:00: Lactic Acid Level 2.68*H 05/09/20 20:10: Lactic Acid Level 1.80 Exam Exam Vital Signs Date Time Temp Pulse Resp B/P (MAP) Pulse Ox O2 Delivery O2 Flow Rate FiO2 05/11/20 04:30 92 High Flow N/C 6.00 05/11/20 04:21 100 90/36 05/11/20 03:00 110 20 111/80 (90) 92 High Flow N/C 8.00 05/11/20 02:00 75 18 154/87 (109) 97 High Flow N/C 8.00 05/11/20 01:39 87 83/46 05/11/20 01:35 99 115/73 05/11/20 01:00 106 05/11/20 01:00 82 17 88/46 (60) 96 High Flow N/C 8.00 05/11/20 00:13 90 High Flow N/C 6.00 05/11/20 00:00 79 20 100/67 (78) 93 High Flow N/C 8.00 05/10/20 23:15 78 85/53 05/10/20 23:00 81 16 110/87 (95) 94 High Flow N/C 8.00 05/10/20 22:00 91 17 118/61 (80) 97 High Flow N/C 8.00 05/10/20 22:00 6.00 05/10/20 21:20 36.4 4.00 05/10/20 21:18 High Flow N/C 8.00 05/10/20 21:00 86 17 110/66 (81) 97 High Flow N/C 6.00 05/10/20 20:29 High Flow N/C 6.00 05/10/20 20:24 High Flow N/C 4.00 05/10/20 20:00 92 High Flow N/C 2.00 05/10/20 20:00 84 22 101/65 (77) 95 High Flow N/C 2.00 05/10/20 19:00 74 05/10/20 19:00 70 19 110/63 (79) 91 High Flow N/C 2.00 05/10/20 18:25 71 15 109/70 (83) 94 High Flow N/C 2.00 05/10/20 17:00 72 18 114/70 (85) 90 High Flow N/C 2.00 05/10/20 16:56 Room Air 05/10/20 16:07 95 High Flow N/C 2.00 05/10/20 16:00 73 22 104/69 (81) 94 High Flow N/C 2.00 05/10/20 15:28 36.7 05/10/20 15:00 67 18 101/64 (76) 96 High Flow N/C 2.00 05/10/20 14:00 62 16 102/63 (76) 94 High Flow N/C 2.00 05/10/20 13:22 70 95/55 05/10/20 13:04 73 05/10/20 13:00 75 50 98/55 (69) 91 High Flow N/C 2.00 05/10/20 12:57 High Flow N/C 2.00 05/10/20 12:06 High Flow N/C 3.00 05/10/20 12:00 69 110/64 (79) 94 High Flow N/C 5.00 05/10/20 11:27 36.1 05/10/20 11:27 High Flow N/C 5.00 05/10/20 11:20 96 Nasal Cannula 8.00 05/10/20 11:09 95 High Flow N/C 8.00 05/10/20 11:00 70 22 95/55 (68) 96 High Flow N/C 8.00 05/10/20 10:00 70 21 98/88 (91) 95 High Flow N/C 8.00 05/10/20 09:44 05/10/20 09:00 78 22 94/58 (70) 94 High Flow N/C 8.00 05/10/20 08:36 High Flow N/C 8.00 05/10/20 08:00 95 High Flow N/C 8.00 05/10/20 08:00 70 26 100/61 (74) 91 High Flow N/C 8.00 05/10/20 07:45 36.6 05/10/20 07:00 84 05/10/20 07:00 83 109/60 (76) OxyMask 8.00 05/10/20 06:00 86 115/80 (92) Nasal Cannula 3.00 I & O 05/11/20 07:00 Intake Total 6334 ml Output Total 3575 ml Balance 2759 ml Height & Weight Height: '" Weight: lbs. oz. kg; 22.00 BMI Method: General Appearance: Mild Distress, Thin, Other (clammy and pale) HEENT: PERRL/EOMI, Pharynx Normal Neck: Non Tender, Supple Respiratory: Chest Non Tender, Lungs Clear, Normal Breath Sounds, No Accessory Muscle Use, No Respiratory Distress Cardiovascular: Regular Rate, Rhythm, Normal Peripheral Pulses Capillary Refill: Less Than 3 Seconds Extremity: Normal Capillary Refill, No Pedal Edema Neurologic/Psychiatric: Alert, Oriented x3 Skin: Cool, Damp, Pallor Results Lab Laboratory Tests 05/09/20 14:45 05/09/20 18:00 05/10/20 03:43 05/11/20 01:50 Assessment/Plan Assessment/Plan S/p Acute STEMI and cardiac cath with 2 stents placed total occlusion of RCA and moderate to severe stenosis of proximal circumflex artery and LAD stenosis Cardiogenic shock EF is 20% and bradycardia -Pt is on Dopamine gtt now -And Neosynephrin -Pt has lifevest New onset Afib -Ammio gtt -increase Lovenox to theraputic dose Hypokalemia -Replace r/o sepsis -Continue Zosyn -Cultures pending Metabolic lactic acidosis -improving -Change Bicarb gtt back to LR DEQUAN TAO DO May 11, 2020 05:37
[2020-05-11] MEDS: POTASSIUM CL 10MEQ/50ML IVPB 50 ML IV SCH ×5 (06:01→08:18)
--- NOTE | 2020-05-11 08:38 | Diagnostic Imaging Report ---
INDICATION: Myocardial infarction COMPARISON: 05/10/2020 TECHNIQUE: Single radiograph of the chest dated 05/11/2020 FINDINGS: Left subclavian central venous catheter is stable. Interval placement of multiple leads and monitors overlying the chest which slightly limits evaluation. The cardiac silhouette is enlarged, though stable. Minimal central pulmonary vascular congestion, appearing improved since the prior examination. Interval development of a small left basilar pleural-parenchymal opacity with associated tiny right basilar pleural effusion. No pneumothorax. No acute osseous abnormality. IMPRESSION: Interval development of a small left basilar pleural-parenchymal opacity, related to a combination of pleural fluid with associated adjacent atelectasis and/or infiltrate. Tiny right pleural effusion. Cardiomegaly with improved central pulmonary vascular congestion. Dictated by: Dictated on workstation # [id number]
[2020-05-11] MEDS: NS IV SCH ×10 (09:26→19:51)
[2020-05-11] MEDS: PHENYLEPHRINE IV SCH ×10 (09:26→19:51)
[2020-05-11] MEDS: ONDANSETRON 4 MG/2 ML (SDV) Z0FRAN IVP PRN ×2 (09:28→14:31)
[2020-05-11] MEDS: NS IV 500 ML 500 ML IV SCH (10:09)
[2020-05-11] MEDS ORDERED: LACTATED RINGERS 1,000 ML IV ONE ×2 (10:15→15:15)
[2020-05-11] MEDS: ENOXAPARIN 80 MG/0.8 ML (LOVENOX) SYR SC SCH ×2 (11:58→21:34)
[2020-05-11] MEDS: CARVEDILOL 3.125 MG (COREG) TABLET PO SCH ×2 (11:59→21:00)
[2020-05-11] MEDS: SACUBITRIL/VALSARTAN 24/26 MG (ENTRESTO) TABLET PO SCH ×2 (12:00→21:00)
[2020-05-11] MEDS: ASPIRIN E.C. 81 MG (ECOTRIN) TAB PO SCH (12:03)
[2020-05-11] MEDS: PANTOPRAZOLE 40 MG (PROTONIX) TAB PO SCH (12:04)
[2020-05-11] MEDS: CLOPIDOGREL 75 MG (PLAVIX) TABLET PO SCH ×2 (12:04→12:07)
[2020-05-11] MEDS ORDERED: LACTATED RINGERS 1,000 ML IV SCH (16:15)
[2020-05-11] MEDS ORDERED: NAPROXEN 250 MG (NAPROSYN) TABLET PO PRN (19:45)
--- NOTE | 2020-05-11 19:47 | Cardiology Progress Note ---
Cardiology SOAP Progress Note Subjective: no chest pain Objective: I&O/Vital Signs 05/12/20 00:00 Intake Total 4687 ml Output Total 7 ml Balance 4680 ml Constitutional: AAO x 3 Respiratory: chest is bilaterally symmetric, lungs clear to auscultation Cardiovascular: regular rate-rhythm, S1 and S2 Gastrointestional: soft, audible bowel sounds Extremities: other (mottled bilateral extremities) Neurologic/Psychiatric: no motor/sensory deficits, alert, normal mood/affect, oriented x 3 Skin: cyanosis, cool, mottled Results/Procedures: Labs Laboratory Tests 05/11/20 22:56: Blood Gas Puncture Site CENTRAL LINE, Blood Gas Patient Temperature 35.4, Arterial Blood pH 6.55*L, Arterial Blood Partial Pressure CO2 117*H, Arterial Blood Partial Pressure O2 35*L, Arterial Blood HCO3 10*L, Arterial Blood Total CO2 13.3L, Arterial Blood Oxygen Saturation 14L, Arterial Blood Base Excess - 25.2L, Jewel Test NA, Blood Gas Ventilator Setting NO, Blood Gas Inspired Oxygen NOT INDICATED Microbiology 05/09/20 Blood Culture - Preliminary, Resulted No growth A/P: Assessment/Dx: Acute ST elevation myocardial infarction Septic shock Congestive heart failure, acute left ventricular systolic dysfunction Hypotension Lactic acidosis Plan: Acute ST elevation occurred infarction in the inferior wall, status post emergency cardiac catheterization and stenting of the right coronary artery with multiple stents, despite coronary disease, small arteries, started on aspirin and Plavix. Continue to monitor Cardiogenic shock, hypotensive shock, with RV shock on iv fluids, on dopamine and norsynephrine. I discussed with the patient and family at length and offered to transferred to for RV assist device or further advanced heart failure management. however the patient refused and the family agreed with the patient. the patient also requested no further interventions. she also requested DNR and no cpr. I did discuss at length that prognosis is grave. the patient and family understood. Congestive heart failure, acute left ventricular systolic dysfunction, severe hypokinesia diffusely, akinesia of the inferior wall, started on Coreg and Entresto, currently on hold due to hypotension, maintained on dopamine drip. We will continue titrating Hypotensive shock, requiring pressors. We'll continue titrating and monitor closely I will arrange for LifeVest evaluation Lactic acidosis, probably secondary to prolonged hypotension prior to arrival to the hospital Leukocytosis, probably reactive. Syncope, reported syncope 2-3 days ago, probably related to arrhythmia and hypotension. Thank you for your consultation. Please call me if you have any questions. Yolie Berry MD, FACP, FACC, FSCAI, FHRS, CCDS Interventional Cardiology Cardiac Electrophysiology Vascular Medicine and Endovascular Interventions Focused Exam Lactate Level 05/09/20 18:00: Lactic Acid Level 2.68*H 05/09/20 20:10: Lactic Acid Level 1.80 Adriana BERRY MD May 11, 2020 19:47
[2020-05-11] MEDS ORDERED: DOCUSATE SODIUM 100 MG (COLACE) CAP PO SCH (21:00)
[2020-05-11] MEDS: PHENYLEPHRINE INJECTION 40 MG in NS (IVPB) 250 ML IV SCH (21:33)
[2020-05-11] MEDS ORDERED: RT-ALBUTEROL/IPRATROPIUM 3 ML (DUONEB) VIAL INH STA (22:02)
[2020-05-11] MEDS ORDERED: FUROSEMIDE 40 MG/4 ML INJ (LASIX) ONE (22:03)
[2020-05-11] MEDS ORDERED: FUROSEMIDE 40 MG/4 ML INJ (LASIX) IVP ONE (22:15)
[2020-05-11 23:07] LABS: ABG BASE EXCESS -25.2 MMOL/L (-2.5-2.5); ABG OXYGEN SATURATION 14 % (94-100); ABG TCO2 13.3 MMOL/L (21.0-31.0)
[2020-05-11 23:09] LABS: ABG PCO2 117 MMHG (35-45); ABG PH 6.55 (7.37-7.43)
[2020-05-11 23:10] LABS: ABG PO2 35 MMHG (79-93); INSPIRED O2 NOT INDICATED; PATIENT TEMP 35.4; VENTILATOR NO
[2020-05-11] MEDS ORDERED: RT-ALBUTEROL/IPRATROPIUM 3 ML (DUONEB) VIAL INH PRN (23:45)
[2020-05-11 23:47] VITALS: BP 155/140
[2020-05-12] MEDS: PIPERACILLIN/TAZOBACTAM (BULK) 4.5 GM in NS (IVPB) 100 ML IV SCH (00:49)
[2020-05-12] MEDS: AMIODARONE INJECTION 450 MG in D5W IV SOLUTION (EXCEL) 250 ML IV SCH (00:49)
[2020-05-12] MEDS: PHENYLEPHRINE INJECTION 40 MG in NS (IVPB) 250 ML IV SCH (00:50)
[2020-05-12 02:01] VITALS: BP 66/35
[2020-05-12] MEDS ORDERED: MAGNESIUM 1 GM/100 ML IVPB 100 ML IV SCH (06:00)
[2020-05-12] MEDS ORDERED: KCL 20 MEQ TAB (K-DUR) PO SCH (06:00)
[2020-05-12] MEDS ORDERED: POTASSIUM CL 10MEQ/50ML IVPB 50 ML IV SCH (06:00)
--- NOTE | 2020-05-12 08:31 | Diagnostic Imaging Report ---
INDICATION: Dyspnea. Comparison made with prior examination of 04/13/2020. FINDINGS: There is cardiomegaly. There is some venous congestion. Patchy bibasilar infiltrates. No pneumothorax. Central venous catheter is in the upper superior vena cava. IMPRESSION: Patchy bibasilar infiltrates right greater left. Cardiomegaly and some central pulmonary venous congestion. Dictated by: Dictated on workstation # [id number]
--- NOTE | 2020-05-15 13:23 | Physician Query Clarification ---
PQ-Further Specificity Admission/Discharge Admission Date: May 09, 2020 at 16:49 Discharge Date: May 12, 2020 at 02:51 Dr. Simpson, The medical record reflects the following clinical scenario: History/Risk Factors: inferior STEMI Clinical Findings: Troponin 35.272, Lactic acid 3.35, T3538, P 89, R 22, WBC 19.5 Treatment: coronary stent x 2 Question: Can you further specify the type of shock patient had per the clinical indicators above? Please document a response in the Progress Notes or Discharge Summary. 1. non infectious septic shock, cardiogenic shock, hypotensive shock 2. No septic shock, cardiogenic shock and hypotensive shock only 3. Other, with explanation of the clinical findings. 4. Clinically undetermined, no explanation for the clinical findings. PHYSICIAN RESPONSE Can you specify per above: Other, explanation/clinical finding Explanation/Clinical Findings Cardiogenic shock Please remember a lack of response to the above will prompt a phone page by CDI/Coding staff. In responding to this query, please exercise your independent professional judgment. The purpose of this communication is to more accurately reflect the complexity of your patients condition. The fact that a question is asked does not imply that any particular answer is desired or expected. Thank you for your timely response to this clarification. Requestors name: [email or web address] THIS PHYSICIAN QUERY FORM IS A PERMANENT PART OF THE MEDICAL RECORD ISABELLA COSTA May 15, 2020 13:23 SLIM SIMPSON MD May 16, 2020 12:34
--- NOTE | 2020-05-24 13:08 | Physician Query Clarification ---
PQ-Uncertain Diagnosis Admission/Discharge Admission Date: May 09, 2020 at 16:49 Discharge Date: May 12, 2020 at 02:51 Dr. Simpson, The medical record reflects the following clinical scenario: History/Risk Factors: inferior STEMI Clinical Findings: Troponin 35.272, Lactic acid 3.35, T3538, P 89, R 22, WBC 19.5 Treatment: coronary stent x 2, IV Zosyn Question: Is sepsis a clinically valid diagnosis? sepsis was documented in the Dr. Alvarado's critical care h&p with no further documentation in the medical record. Please document a response in Progress Note or Discharge Summary. 1. Yes, clinically valid, condition resolved. 2. No, condition ruled out. 3. Other, with explanation of clinical findings. 4. Undetermined, no explanation for clinical findings. PHYSICIAN RESPONSE Diagnosis clinically valid: Other, explanation/clinical finding Explanation of clincal finding Patient was in cardiogenic shock Please remember a lack of response to the above will prompt a phone page by CDI/Coding staff. In responding to this query, please exercise your independent professional judgment. The purpose of this communication is to more accurately reflect the complexity of your patients condition. The fact that a question is asked does not imply that any particular answer is desired or expected. Thank you for your timely response to this clarification. Requestors name: [email or web address] THIS PHYSICIAN QUERY FORM IS A PERMANENT PART OF THE MEDICAL RECORD ISABELLA COSTA May 24, 2020 13:08 SLIM SIMPSON MD May 24, 2020 14:00
== END 2020-05-12 02:51 | disposition expired | DRG 246 ==
LOC: ER FS 14:35 → CATH 15:45 → ICU 16:49 → CATH 16:53 → ICU 16:53 → UNDOADMOB 05-10 00:14 → CATH 05-10 00:14 → ICU 05-10 00:14 → UNDODISOB 05-12 02:51
PROVIDERS: ADMIT Internal Medicine Cardiovascular Disease; ATTEND Internal Medicine Cardiovascular Disease
PROC: 027035Z Dilation of Coronary Artery, One Artery with Two Drug-eluting Intraluminal Devices, Percutaneous Approach (ICD-10-PCS; principal; 2020-05-09)
PROC: 4A023N7 Measurement of Cardiac Sampling and Pressure, Left Heart, Percutaneous Approach (ICD-10-PCS; 2020-05-09)
PROC: B2111ZZ Fluoroscopy of Multiple Coronary Arteries using Low Osmolar Contrast (ICD-10-PCS; 2020-05-09)
PROC: B2151ZZ Fluoroscopy of Left Heart using Low Osmolar Contrast (ICD-10-PCS; 2020-05-09)
DX: I21.19 ST elevation (STEMI) myocardial infarction involving other coronary artery of inferior wall (principal); I50.21 Acute systolic (congestive) heart failure; E87.2 Acidosis; R57.0 Cardiogenic shock; I11.0 Hypertensive heart disease with heart failure; F17.200 Nicotine dependence, unspecified, uncomplicated; R73.9 Hyperglycemia, unspecified; E78.00 Pure hypercholesterolemia, unspecified; I48.91 Unspecified atrial fibrillation; E87.6 Hypokalemia; Z79.82 Long term (current) use of aspirin
CPT/HCPCS: 36415; 71045; 80048; 80053; 81000; 82805; 83605; 83690; 83735; 83880; 84100; 84145; 84484; 85007; 85025; 85027; 85610; 85730; 87040; 93005; 93041; 93306; 93458; 94640; 94660; 96374; 96375